=== PATIENT | male | born 1945 | race Two or more races ===

== ENCOUNTER 2021-11-12 15:11 | Emergency (ER) | payer OTHER, MEDICAID ==
[~2021-11-12] VITALS: Ht 167.6 cm; Wt 136.0 kg
[2021-11-12] MEDS ORDERED: NAPROXEN 500 MG TAB PO ONE (16:45)
[2021-11-12 18:00] VITALS: BP 108/65
== END 2021-11-12 18:04 | disposition home or self-care (01) ==
LOC: ER 15:11
DX: M25.561 Pain in right knee (principal); R22.41 Localized swelling, mass and lump, right lower limb; Z91.09 Other allergy status, other than to drugs and biological substances
CPT/HCPCS: 73700